=== PATIENT | male | born 1995 ===

== ENCOUNTER 2017-06-10 20:00 | Emergency (ER) | payer OTHER ==
[2017-06-10 21:21] VITALS: BP 122/60
[2017-06-10] MEDS ORDERED: Acetaminophen TAB* 325 MG PO ONE (21:44)
--- NOTE | 2017-06-10 21:53 | UC ---
FLU HPI - HPI Summary HPI Summary: pt c/o fever, chills, body aches X 2 days. - History of Current Complaint Chief Complaint: UCGeneralIllness Stated Complaint: FLU LIKE SYMPTOMS Time Seen by Provider: 06/10/17 21:23 Hx Obtained From: Patient Onset/Duration: Sudden Onset, Lasting Days Severity Currently: Moderate Severity Initially: Mild Associated Signs & Symptoms: Positive: Fever, Myalgia Related Hx: Possible Flu/Infectious Exposure - Risk Factors Influenza Risk Factors: Negative - Allergy/Home Medications Allergies/Adverse Reactions: Allergies Allergy/AdvReac Type Severity Reaction Status Date / Time No Known Allergies Allergy Verified 06/10/17 21:21 Home Medications: Home Medications Acetaminophen [Acetaminophen Extra Stren] 1,000 mg PO Q6H PRN 06/10/17 [History Confirmed 06/10/17] Fluticasone NASAL SPRAY 50MCG* [Flonase NASAL SPRAY 50MCG*] 2 spray BOTH NARES DAILY 06/10/17 [History Confirmed 06/10/17] Fluticasone-Salmeterol 250-50* [Advair Diskus 250-50*] 1 puff INH BID 06/10/17 [ History Confirmed 06/10/17] Montelukast Sodium TAB* [Singulair 10 MG TAB*] 10 mg PO BID 06/10/17 [History Confirmed 06/10/17] Omeprazole [Prilosec] 20 mg PO DAILY 06/10/17 [History Confirmed 06/10/17] PMH/Surg Hx/FS Hx/Imm Hx Previously Healthy: Yes - Surgical History Surgical History: None - Family History Known Family History: Positive: Cardiac Disease - Social History Occupation: Student Lives: Dormitory/Roommates Alcohol Use: Occasionally Substance Use Type: None Smoking Status (MU): Never Smoked Tobacco Have You Smoked in the Last Year: No - Immunization History Vaccination Up to Date: Yes Review of Systems Constitutional: Fever, Chills, Fatigue Skin: Negative Eyes: Negative ENT: Negative Respiratory: Negative Cardiovascular: Negative Gastrointestinal: Negative Genitourinary: Negative Motor: Negative Neurovascular: Negative Musculoskeletal: Myalgia Neurological: Negative Psychological: Negative Is Patient Immunocompromised?: No All Other Systems Reviewed And Are Negative: Yes Physical Exam Triage Information Reviewed: Yes Appearance: Ill-Appearing Vital Signs: Initial Vital Signs Temp 101.4 F 06/10/17 21:15 Pulse 83 06/10/17 21:15 Resp 12 06/10/17 21:15 BP 122/60 06/10/17 21:15 Pulse Ox 100 06/10/17 21:15 Vital Signs Reviewed: Yes Eye Exam: Normal ENT Exam: Other ENT: Positive: Tonsillar swelling, Tonsillar exudate Dental Exam: Normal Neck exam: Normal Respiratory Exam: Normal Cardiovascular Exam: Normal Musculoskeletal Exam: Normal Neurological Exam: Normal Psychological Exam: Normal Skin Exam: Normal Flu Course/Dx - Differential Dx/Diagnosis Differential Diagnosis/HQI/PQRI: Influenza, Other - strep , mono Provider Diagnoses: strep throat Discharge - Discharge Plan Condition: Stable Disposition: HOME Prescriptions: Penicillin VK 500 MG TAB(NF) [Penicillin VK 500 mg Tab] 500 mg PO Q8H #30 tab Patient Education Materials: Strep Throat (ED) Referrals: [facility] [Outside]
[2017-06-10] MEDS ORDERED: Penicillin VK TAB* 250 MG PO ONE (22:01)
== END 2017-06-10 22:09 | disposition home or self-care (01) ==
LOC: UCCORT 20:00
DX: J02.0 Streptococcal pharyngitis (principal)
CPT/HCPCS: 87502; 87651; 99202; A9270-GY; G0463

== ENCOUNTER 2017-10-31 13:37 | Emergency (ER) | payer OTHER ==
[2017-10-31 14:32] VITALS: BP 150/70
--- NOTE | 2017-10-31 15:30 | UC ---
Eye Complaint HPI - HPI Summary HPI Summary: 22 yo male c/o L eye redness, watery, itchy, yellow crust this am. Thinks sx started approx 3am today. Denies other sx. Does have hx chronic watery eyes. No cough / sob. No uri. + hx chronic ear infections when younger. No blurry vision. No sinus congestion. No sore throat. No GI issues. No rash. - History of Current Complaint Chief Complaint: UCEye Stated Complaint: L EYE COMPLAINT Time Seen by Provider: 10/31/17 15:02 Hx Obtained From: Patient Pain Intensity: 0 - Allergies/Home Medications Allergies/Adverse Reactions: Allergies Allergy/AdvReac Type Severity Reaction Status Date / Time No Known Allergies Allergy Verified 10/31/17 14:27 PMH/Surg Hx/FS Hx/Imm Hx Previously Healthy: Yes - Surgical History Surgical History: None - Family History Known Family History: Positive: Cardiac Disease - Social History Alcohol Use: Occasionally Substance Use Type: None Smoking Status (MU): Never Smoked Tobacco Have You Smoked in the Last Year: No - Immunization History Vaccination Up to Date: Yes Review of Systems Constitutional: Negative Skin: Negative Eyes: Other - see hpi ENT: Negative Respiratory: Negative Cardiovascular: Negative Gastrointestinal: Negative Genitourinary: Negative Motor: Negative Neurovascular: Negative Musculoskeletal: Negative Neurological: Negative Psychological: Negative Is Patient Immunocompromised?: No All Other Systems Reviewed And Are Negative: Yes Physical Exam Triage Information Reviewed: Yes Appearance: Well-Appearing, Well-Nourished Vital Signs: Initial Vital Signs Temp 98.3 F 10/31/17 14:26 Pulse 80 10/31/17 14:26 Resp 16 10/31/17 14:26 BP 150/70 10/31/17 14:26 Pulse Ox 99 10/31/17 14:26 Vital Signs Reviewed: Yes Eye Exam: Other - perrla eomi sw od, sclera a little injected os. Conjunctiva os + injected, mild yellow - clear d/c. No rash. ENT: Positive: Pharynx normal, TM dull - TM dull, thibodeaux as. TM ok od. Neck exam: Normal Neck: Positive: Supple, Nontender, No Lymphadenopathy Respiratory Exam: Normal - normal rr, no tachypnea, no dyspnea Cardiovascular Exam: Normal - normal hr, nondiaphoretic Abdominal Exam: Normal Musculoskeletal Exam: Normal - gait steady Neurological Exam: Normal - grossly nonfoca Psychological Exam: Normal - conversing easily and appropriately Eye Complaint Course/Dx - Course Course Of Treatment: Reviewed coa / tx plan with pt. Questions as posed answered to the best of my ability - Differential Dx/Diagnosis Provider Diagnoses: Conjunctivitis L eye. 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 Antibiotic eye drops x 5 days. Consider Patanol drops as prescribed, hold off until next week. Please seek medical attention for worse or new problems. Drink plenty of water. Avoid smoky environments. - Billing Disposition and Condition Condition: STABLE Disposition: HOME
== END 2017-10-31 15:40 | disposition home or self-care (01) ==
LOC: UCCORT 13:37
DX: H10.9 Unspecified conjunctivitis (principal); H04.203 Unspecified epiphora, bilateral
CPT/HCPCS: 99212; G0463